=== PATIENT | male | born 1975 | race Caucasian/White ===

== ENCOUNTER → 2016-04-22 | Day surgery (SDC) | payer OTHER ==
[~2016-04-22] VITALS: Ht 177.8 cm; Wt 87.0 kg
[~2016-04-22] MED LIST: *Lactated Ringer's INJ 1,000 ML ONE; ACETAMINOPHEN 1000 MG/100 ML VIAL IV ONE; ACETAMINOPHEN/HYDROcodone 325 MG/5 MG TAB ONE; BUPIVACAINE/EPINEPHRINE 0.5% PF 30 ML VIAL ONE; DEXAMETHASONE SOD PHOS 4 MG/ML VIAL ONE; FAMOTIDINE 20 MG/2 ML VIAL ONE; KETOROLAC TROMETHAMINE 30 MG/ML (IVP) VIAL ONE; LACTATED RINGER'S 1000 ML INJ 1,000 ML ONE; MIDAZOLAM HCL 2 MG/2 ML VIAL ONE; MORPHINE SULFATE 4 MG/ML INJ ONE; ONDANSETRON HCL 4 MG/2 ML VIAL IV PUSH ONE; PROPOFOL 200 MG/20 ML AMP IV ONE; fentaNYL CITRATE 250 MCG/5 ML AMP ONE
[2016-04-22 10:54] VITALS: BP 144/77; PULSE 62; RESP 16; TEMP 98; O2SAT 96
[2016-04-22 13:25] VITALS: PULSE 71
--- NOTE | 2016-04-22 13:40 | MP ---
cc: LOS VILLAVICENCIO M.D. DATE OF SURGERY 04/22/[address] Los Villavicencio PREOPERATIVE DIAGNOSIS Tear medial meniscus of the left knee joint. POSTOPERATIVE DIAGNOSIS Tear medial meniscus of the left knee joint. PROCEDURE Subtotal medial meniscectomy. PROCEDURE IN DETAIL The patient was placed on the operating table in the supine position. Adequate general anesthesia was administered by the anesthesiologist. The left knee was prepped and draped in the usual sterile fashion. A time-out was called and the patient's name, procedure and location were fully verified. An Esmarch bandage was used to exsanguinate the left lower extremity and a pneumatic tourniquet was inflated at the level of the mid thigh to 300. An anterolateral stab wound was made followed by insertion of the double cannula and the joint was distended with lactated Ringer's solution. No fluid was encountered in the joint. A systematic examination of the knee joint, as well as probing through an anteromedial portal, which was used for instrumentation, was then carried out and the suprapatellar pouch and patellofemoral joint were normal. The intercondylar fossa revealed intact cruciate ligaments. The medial compartment showed fraying and tearing of the anterior horn only. The meniscus otherwise appeared to be stable and there was no evidence of loose fragments. A subtotal medial meniscectomy in the area of the anterior horn was then carried out with a motorized resector. Attention was then turned to the lateral compartment. The lateral meniscus was entirely viewed and found to be intact. The articular surfaces of both medial and lateral compartment as well as anterior compartment were found to be also intact and smooth. The joint was aspirated of all fluid and the instruments removed. Two stab wounds were then closed with simple 3-0 nylon. Xeroform gauze was applied over this, followed by application of a bulky dressing. The tourniquet was deflated after 13 minutes. Sponge count, needle counts and instrument counts were reportedly correct x2. Estimated blood loss was nil. The patient was transferred to the recovery room in satisfactory condition. MD HUGO Arteaga/CARLOS /1:13 PM /1:34 PM
[2016-04-22 14:30] VITALS: PULSE 64; TEMP 97.8
[2016-04-22 15:05] VITALS: BP 115/64; PULSE 64; RESP 14; O2SAT 96
== END | disposition home or self-care (01) ==
LOC: CSDC 10:02
PROVIDERS: ATTEND Orthopaedic Surgery
DX: S83.242D Other tear of medial meniscus, current injury, left knee, subsequent encounter (principal); X50.1XXD Overexertion from prolonged static or awkward postures, subsequent encounter; Y93.H2 Activity, gardening and landscaping; Y92.9 Unspecified place or not applicable; Y99.0 Civilian activity done for income or pay
CPT/HCPCS: 01400; 29881; C1713; E0113; J0131; J1100; J1885; J2250; J2270; J2405; J3010; J7120